=== PATIENT | male | born 1940 | race Caucasian/White ===

== ENCOUNTER 2016-05-07 11:46 | Emergency (ER) | payer OTHER ==
[~2016-05-07 11:46] MED LIST: PERC7.5T13 PO
[2016-05-07 11:49] VITALS: BP 163/77; PULSE 80; RESP 24; TEMP 97.5; O2SAT 94
[2016-05-07 12:29] VITALS: BP 152/87; PULSE 90; RESP 20; O2SAT 98
[2016-05-07 12:46] LABS: AUTOMATED NEUTROPHIL # 9.9 TH/MM3 (1.8-7.7); BASOPHIL # 0.1 TH/MM3 (0-0.2); BASOPHIL % 0.8 % (0.0-2.0); EOSINOPHIL # 0.1 TH/MM3 (0-0.4); EOSINOPHIL % 0.8 % (0.0-4.0); HEMATOCRIT 49.4 % (39.0-51.0); HEMO FLAGS DIFF FINAL; LYMPH % 11.2 % (9.0-44.0); LYMPHOCYTE # 1.4 TH/MM3 (1.0-4.8); MEAN CELL VOLUME 93.3 FL (80.0-100.0); MEAN CORPUSCULAR HEMOGLOBIN 31.3 PG (27.0-34.0); MEAN CORPUSCULAR HGB CONC 33.5 % (32.0-36.0); MONO % 6.5 % (0.0-8.0); NEUT % 80.7 % (16.0-70.0); PLATELET COUNT 221 TH/MM3 (150-450); RED CELL DISTRIBUTION WIDTH 16.2 % (11.6-17.2); WHITE BLOOD COUNT 12.3 TH/MM3 (4.0-11.0)
--- NOTE | 2016-05-07 12:51 | PD ---
HPI Chief Complaint: Complaint Time Seen by Provider: 12:46 Travel History International Travel<30 days: No Contact w/Intl Traveler<30days: No Traveled to known affect area: No History of Present Illness HPI 76-year-old male that presents to the ED for evaluation of dysuria, urgency and hesitation. Per patient she's had this since last night. Per patient he has gotten up about 30 times, he has to go PE but nothing comes out. Per patient she feels like he has an urgency to go as well as dysuria. Per patient he may be urinated 3 ounces of fluid. He feels like he still has to go and feels a pressure. He denies having anything like this before. He does state that he has a history of enlarged prostate and takes medications for it but he denies any recent injury. No fevers chills or sweats. No rashes. No testicular pain. He has an allergy to hydrocortisone. He does tell me that he has had some cough for the past couple months and his been using medications prescribed by his doctor for the cough. He denies any chest pain or shortness of breath. Pain is 4 out of 10. PFSH Past Medical History Atrial Fibrillation: Yes Genitourinary: Yes (ENLARGED PROSTATE) Hypertension: Yes Tetanus Vaccination: Unknown Influenza Vaccination: Yes ?: Not Social History Alcohol Use: No Tobacco Use: No Substance Use: No Allergies-Medications (Allergen,Severity, Reaction): Coded Allergies: Hydrocortisone (Unverified Allergy, Severe, 03/19/14) Reported Meds & Prescriptions Reported Meds & Active Scripts Active Cipro (Ciprofloxacin HCl) 500 Mg Tab 500 Mg PO BID 10 Days Percocet 7.5-325 mg (Oxycodone-Acetaminophen 7.5-325 mg) Oxycodone 7.5/325 Acetaminophen Tab 1 Tab PO Q6 FOR PAIN Review of Systems Except as stated in HPI: all other systems reviewed are Neg Physical Exam Narrative GENERAL: SKIN: Warm and dry. HEAD: Atraumatic. Normocephalic. EYES: Pupils equal and round. No scleral icterus. No injection or drainage. ENT: No nasal bleeding or discharge. Mucous membranes pink and moist. NECK: Trachea midline. No JVD. CARDIOVASCULAR: Regular rate and rhythm. RESPIRATORY: No accessory muscle use. Clear to auscultation. Breath sounds equal bilaterally. GASTROINTESTINAL: Abdomen soft, non-tender, nondistended. Hepatic and splenic margins not palpable. No CVA tenderness. MUSCULOSKELETAL: Extremities without clubbing, cyanosis, or edema. No obvious deformities. Full range of motion of the upper and lower extremity bilaterally. 2+ pulses bilaterally. NEUROLOGICAL: Awake and alert. No obvious cranial nerve deficits. Motor grossly within normal limits. Five out of 5 muscle strength in the arms and legs. Normal speech. PSYCHIATRIC: Appropriate mood and affect; insight and judgment normal. Data Data Last Documented VS Vital Signs Date Time Temp Pulse Resp B/P Pulse Ox O2 Delivery O2 Flow Rate FiO2 05/07/16 12:29 90 20 152/87 98 Room Air 05/07/16 11:49 97.5 Orders Complete Blood Count With Diff (05/07/16 12:07) Basic Metabolic Panel (Bmp) (05/07/16 12:07) Urinalysis - C+S If Indicated (05/07/16 12:07) Iv Access Insert/Monitor (05/07/16 12:07) Urinary Catheter Insert/Apply (05/07/16 12:07) Urine Culture (05/07/16 12:20) Labs Laboratory Tests Test 05/07/16 12:20 White Blood Count 12.3 TH/MM3 Red Blood Count 5.30 MIL/MM3 Hemoglobin 16.6 GM/DL Hematocrit 49.4 % Mean Corpuscular Volume 93.3 FL Mean Corpuscular Hemoglobin 31.3 PG Mean Corpuscular Hemoglobin 33.5 % Concent Red Cell Distribution Width 16.2 % Platelet Count 221 TH/MM3 Mean Platelet Volume 8.8 FL Neutrophils (%) (Auto) 80.7 % Lymphocytes (%) (Auto) 11.2 % Monocytes (%) (Auto) 6.5 % Eosinophils (%) (Auto) 0.8 % Basophils (%) (Auto) 0.8 % Neutrophils # (Auto) 9.9 TH/MM3 Lymphocytes # (Auto) 1.4 TH/MM3 Monocytes # (Auto) 0.8 TH/MM3 Eosinophils # (Auto) 0.1 TH/MM3 Basophils # (Auto) 0.1 TH/MM3 CBC Comment DIFF FINAL Differential Comment Urine Color YELLOW Urine Turbidity CLEAR Urine pH 5.0 Urine Specific [place] 1.012 Urine Protein 30 mg/dL Urine Glucose (UA) NEG mg/dL Urine Ketones NEG mg/dL Urine Occult Blood NEG Urine Nitrite NEG Urine Bilirubin NEG Urine Urobilinogen LESS THAN 2.0 MG/DL Urine Leukocyte Esterase NEG Urine RBC LESS THAN 1 /hpf Urine WBC LESS THAN 1 /hpf Urine Bacteria RARE /hpf Urine Mucus FEW /lpf Microscopic Urinalysis Comment CATH-CULTURE IND Sodium Level 139 MEQ/L Potassium Level 4.4 MEQ/L Chloride Level 108 MEQ/L Carbon Dioxide Level 24.6 MEQ/L Anion Gap 6 MEQ/L Blood Urea Nitrogen 14 MG/DL Creatinine 1.16 MG/DL Estimat Glomerular Filtration 61 ML/MIN Rate Random Glucose 120 MG/DL Calcium Level 9.3 MG/DL [facility] Medical Decision Making Medical Screen Exam Complete: Yes Emergency Medical Condition: Yes Medical Record Reviewed: Yes Interpretation(s) CBC & BMP Diagram 05/07/16 12:20 UA showed some bacteria. Differential Diagnosis Urinary obstruction versus urinary retention versus kidney failure versus UTI versus dysuria versus enlarged prostate Narrative Course 76-year-old male that presents to the ED for evaluation of urinary obstruction. Patient was properly examined and was found to have signs and symptoms consistent appears to be urinary obstruction. Likely from enlarged prostate. Possible side effect from [id number] cold remedies. Patient had 1 L of fluid, from his Lepe. Patient had good relief with the Lepe alone. Urine and labs were ordered. This showed some bacteria but no other sign of acute disease. Patient likely has urinary retention secondary to enlarged prostate as well as recent use of cough syrup which likely exacerbated the urinary retention. Patient had 100% improvement of symptoms with just the following alone. Patient understands that he needs to follow urologist next week. Patient was given information for urologist on-call. Patient will be given prescription for Cipro to cover for bacterial infection. My attending Dr. Earl personally evaluated the patient with me and agrees with plan. He was told to continue taking his BPH medications as needed. See ED worsening symptoms. Diagnosis Primary Impression: Urinary obstruction Referrals: Skinny Wiley MD Patient Instructions: General Instructions Additional Instructions: Take medication as prescribed. Follow-up with urologist. See ED worsening symptoms. Stop taking the cough syrup. Med/Other Pt SpecificInfo: Prescription(s) given Scripts Ciprofloxacin (Cipro)500 Mg [id number] Mg PO BID 10 Days Prov:Trace Earl MD 05/07/16 Disposition: 01 DISCHARGE HOME Condition: Stable Van Jama 13, 2017 12:50
[2016-05-07 12:57] LABS: BACTERIA, URINE RARE /hpf; BLOOD, URINE NEG (NEG); GLUCOSE,URINE NEG (NEG); KETONE, URINE NEG (NEG); MUCUS URINE FEW /lpf (OCC); NITRITE,URINE NEG (NEG); URINE COLOR YELLOW (YELLW/STRAW)
[2016-05-07 12:58] LABS: COMMENT (UR) CATH-CULTURE IND; CULTURE IF INDICATED CATH CULTURE IND
[2016-05-07 13:06] LABS: BICARBONATE 24.6 MEQ/L (21.0-32.0); POTASSIUM 4.4 MEQ/L (3.5-5.1)
[2016-05-07] MEDS ORDERED: CIPR-9 PO (13:23)
[2016-05-07 14:11] VITALS: BP 135/82; PULSE 82; RESP 20; O2SAT 98
[2016-05-08] MEDS ORDERED: SIMV40TA PO (17:00)
[2016-05-08] MEDS ORDERED: ATEN25TA PO (17:00)
[2016-05-08] MEDS ORDERED: DIGO0.25 PO (17:00)
[2016-05-08] MEDS ORDERED: MECL-62 PO (17:00)
[2016-05-08] MEDS ORDERED: ALPR0.5T3 PO (17:00)
[2016-05-08] MEDS ORDERED: TERA5CAP3 PO (17:00)
[2016-05-08] MEDS ORDERED: ALLO300T2 PO (17:00)
[2016-05-08] MEDS ORDERED: MEDI220T PO (17:00)
[2016-05-08] MEDS ORDERED: OMEP20TA PO (17:00)
[2016-05-08] MEDS ORDERED: MIRA33504 PO (17:57)
== END 2016-05-07 14:11 | disposition home or self-care (01) ==
LOC: NEPC 11:46
DX: N40.1 Benign prostatic hyperplasia with lower urinary tract symptoms (principal); N13.8 Other obstructive and reflux uropathy; R39.11 Hesitancy of micturition; R33.8 Other retention of urine; R39.15 Urgency of urination
CPT/HCPCS: 51703; 80048; 81001; 85025; 87086

== ENCOUNTER 2016-05-08 15:11 | Emergency (ER) | payer OTHER ==
[~2016-05-08 15:11] MED LIST changes: +CIPR-9 PO
[2016-05-08 15:12] VITALS: BP 163/85; PULSE 102; RESP 22; TEMP 98.2; O2SAT 95
[2016-05-08] MEDS ORDERED: SODIUM CHLORIDE 0.9% FLUSH 5 ML FLUSH IVF PRN (16:45)
[2016-05-08] MEDS ORDERED: SODIUM CHLORID 0.9% 500 ML INJ 500 ML IV ONE (16:45)
[2016-05-08 16:51] VITALS: RESP 20; O2SAT 95
[2016-05-08] MEDS ORDERED: DIGO0.25 PO (17:00)
[2016-05-08] MEDS ORDERED: ALLO300T2 PO (17:00)
[2016-05-08] MEDS ORDERED: ALPR0.5T3 PO (17:00)
[2016-05-08] MEDS ORDERED: TERA5CAP3 PO (17:00)
[2016-05-08] MEDS ORDERED: SIMV40TA PO (17:00)
[2016-05-08] MEDS ORDERED: ATEN25TA PO (17:00)
[2016-05-08] MEDS ORDERED: MEDI220T PO (17:00)
[2016-05-08] MEDS ORDERED: MECL-62 PO (17:00)
[2016-05-08] MEDS ORDERED: OMEP20TA PO (17:00)
--- NOTE | 2016-05-08 17:00 | PD ---
HPI Chief Complaint: Complaint Time Seen by Provider: 16:31 Travel History International Travel<30 days: No Contact w/Intl Traveler<30days: No Traveled to known affect area: No History of Present Illness HPI 76-year-old male came to the emergency room with history of abdominal discomfort. Patient was in the emergency room yesterday for urinary retention. A Lepe catheter was put in which drained the urine and patient was sent home with leg bag. His blood test results were within normal limit and UA was suggestive of possible UTI. He was discharged home on ciprofloxacin but the patient was afraid to take the antibiotic since he looked up the side effect and he was quite concerned. Today the patient says that he has been dribbling around the catheter and has to wear depends. Also he has developed some bloated sensation in his abdomen and some pain going to his back. No history of fever or chills. No history of nausea vomiting. Patient has not had bowel movement for 4 days now. He says that is not unusual for him. Patient says that he was sent home the name of a urologist to follow up with. However when he tried calling the office he was unable to get anybody on the other end. [facility] Past Medical History Narrative Medical List of his past medical history as reviewed from the nursing note. Atrial Fibrillation: Yes Cardiovascular Problems: Yes (A-FIB) Gout: Yes Genitourinary: Yes (ENLARGED PROSTATE) Hypertension: Yes Tetanus Vaccination: > 5 Years Influenza Vaccination: Yes Past Surgical History Surgical History: No Previous Surgery Social History Alcohol Use: No Tobacco Use: No Substance Use: No Allergies-Medications (Allergen,Severity, Reaction): Coded Allergies: Hydrocortisone (Verified Allergy, Severe, 05/08/16) Comments List of his allergies reviewed from the nursing note. Reported Meds & Prescriptions Reported Meds & Active Scripts Active Miralax Powder (Polyethylene Glycol 3350 Powder) 17 Gm Powd 17 Gm PO DAILY Mix and dissolve one measuring cap-ful (17 grams) in water or juice. Reported Omeprazole 20 Mg Tab 20 Mg PO DAILY Terazosin (Terazosin HCl) 5 Mg Cap 5 Mg PO HS Allopurinol 300 Mg Tab 300 Mg PO DAILY Simvastatin 40 Mg Tab 40 Mg PO HS Atenolol 25 Mg Tab 25 Mg PO DAILY Digoxin 0.25 Mg Tab 0.25 Mg PO DAILY Meclizine (Meclizine HCl) 25 Mg Tab 25 Mg PO TID PRN Naproxen Sodium 220 Mg Tab 220 Mg PO BID PRN Alprazolam 0.5 Mg Tab 0.5 Mg PO Q8H PRN Narrative Medication List of his home medications reviewed from the nursing note. Review of Systems Except as stated in HPI: all other systems reviewed are Neg Physical Exam Narrative GENERAL: Awake, alert, anxious, elderly, moderate distress SKIN: Warm and dry. HEAD: Atraumatic. Normocephalic. EYES: Pupils equal and round. No scleral icterus. No injection or drainage. ENT: No nasal bleeding or discharge. Mucous membranes pink and moist. NECK: Trachea midline. No JVD. CARDIOVASCULAR: Regular rate and rhythm. No murmur appreciated. RESPIRATORY: No accessory muscle use. Clear to auscultation. Breath sounds equal bilaterally. GASTROINTESTINAL: Abdomen soft, non-tender, nondistended. Hepatic and splenic margins not palpable. Leg bag attached to his right thigh. Clear urine in the bag. MUSCULOSKELETAL: No obvious deformities. No clubbing. No cyanosis. No edema. NEUROLOGICAL: Awake and alert. No obvious cranial nerve deficits. Motor grossly within normal limits. Normal speech. PSYCHIATRIC: Appropriate mood and affect; insight and judgment normal. Data Data Last Documented VS Vital Signs Date Time Temp Pulse Resp B/P Pulse Ox O2 Delivery O2 Flow Rate FiO2 05/08/16 16:51 85 20 05/08/16 16:51 95 Room Air 05/08/16 15:12 98.2 163/85 Orders Complete Blood Count With Diff (05/08/16 16:40) Comprehensive Metabolic Panel (05/08/16 16:40) Urinalysis - C+S If Indicated (05/08/16 16:40) Ct Abd/Pel W/O Iv Contrast (05/08/16 16:40) Iv Access Insert/Monitor (05/08/16 16:40) Ecg Monitoring (05/08/16 16:40) Oximetry (05/08/16 16:40) Sodium Chloride 0.9% Flush (Ns Flush) (05/08/16 16:45) Sodium Chlorid 0.9% 500 Ml Inj (Ns 500 M (05/08/16 16:45) Labs Laboratory Tests Test 05/08/16 05/08/16 16:40 16:45 Urine Color LIGHT-YELLOW Urine Turbidity CLEAR Urine pH 5.0 Urine Specific [place] 1.004 Urine Protein TRACE mg/dL Urine Glucose (UA) NEG mg/dL Urine Ketones NEG mg/dL Urine Occult Blood MOD Urine Nitrite NEG Urine Bilirubin NEG Urine Urobilinogen LESS THAN 2.0 MG/DL Urine Leukocyte Esterase MOD Urine RBC 2 /hpf Urine WBC 4 /hpf Urine Bacteria RARE /hpf Microscopic Urinalysis Comment CULT NOT INDICATED White Blood Count 15.9 TH/MM3 Red Blood Count 4.94 MIL/MM3 Hemoglobin 15.7 GM/DL Hematocrit 46.1 % Mean Corpuscular Volume 93.4 FL Mean Corpuscular Hemoglobin 31.7 PG Mean Corpuscular Hemoglobin 34.0 % Concent Red Cell Distribution Width 16.0 % Platelet Count 202 TH/MM3 Mean Platelet Volume 8.9 FL Neutrophils (%) (Auto) 78.1 % Lymphocytes (%) (Auto) 10.9 % Monocytes (%) (Auto) 9.4 % Eosinophils (%) (Auto) 0.2 % Basophils (%) (Auto) 1.4 % Neutrophils # (Auto) 12.4 TH/MM3 Lymphocytes # (Auto) 1.7 TH/MM3 Monocytes # (Auto) 1.5 TH/MM3 Eosinophils # (Auto) 0.0 TH/MM3 Basophils # (Auto) 0.2 TH/MM3 CBC Comment DIFF FINAL Differential Comment Sodium Level 138 MEQ/L Potassium Level 4.1 MEQ/L Chloride Level 103 MEQ/L Carbon Dioxide Level 24.5 MEQ/L Anion Gap 11 MEQ/L Blood Urea Nitrogen 16 MG/DL Creatinine 1.14 MG/DL Estimat Glomerular Filtration 62 ML/MIN Rate Random Glucose 114 MG/DL Calcium Level 9.1 MG/DL Total Bilirubin 1.2 MG/DL Aspartate Amino Transf 20 U/L (AST/SGOT) Alanine Aminotransferase 35 U/L (ALT/SGPT) Alkaline Phosphatase 59 U/L Total Protein 8.0 GM/DL Albumin 4.0 GM/DL [facility] Medical Decision Making Medical Screen Exam Complete: Yes Emergency Medical Condition: Yes Medical Record Reviewed: Yes Differential Diagnosis Obstipation, acute diverticulitis, abdominal pain NOS Narrative Course 5 PM I have ordered blood tests and a CAT scan. Awaiting for the test results and the CAT scan to be done and resulted. Patient says he does not need anything for pain currently since the pain is bearable. 5:54 PM blood test results of back and patient has some leukocytosis. This is moderately increased from yesterday. However his chemistry and urinalysis looks better. CAT scan of the abdomen shows moderate stool but otherwise negative. I will discharge this gentleman home. His Lepe catheter was asked to be changed by the nurse. 6:15 PM patient did not want the Lepe catheter to be changed and would rather follow up with the urologist. He said he would continue wearing the depends in the meanwhile if there is leakage. I'm fine with that plan. Patient will be discharged. Procedures EKG Prior to Arrival: No Diagnosis Primary Impression: Urinary obstruction Additional Impressions: Abdominal discomfort Constipation Qualified Code: K59.00 - Constipation, unspecified constipation type Referrals: Skinny Wiley MD 2 days Additional Instructions: Please follow-up with the urologist whose name and number has been provided to you on Tuesday. Take the medication as per the prescription direction. He did not need to take the antibiotic that was prescribed to you yesterday. Empty the leg bag as per the nurses demonstration. Return to the ER if the condition worsens or any other new concerns. Med/Other Pt SpecificInfo: Prescription(s) given Scripts Polyethylene Glycol 3350 Powder (Miralax Powder)17 Gm Powd17 Gm PO DAILY #1 BOTTLE Ref 0 Mix and dissolve one measuring cap-ful (17 grams) in water or juice. Prov:Vinicio Magana MD 05/08/16 Disposition: 01 DISCHARGE HOME Condition: Stable Vinicio Magana MD May 08, 2016 17:00
[2016-05-08 17:19] LABS: AUTOMATED NEUTROPHIL # 12.4 TH/MM3 (1.8-7.7); BASOPHIL # 0.2 TH/MM3 (0-0.2); BASOPHIL % 1.4 % (0.0-2.0); EOSINOPHIL % 0.2 % (0.0-4.0); HEMATOCRIT 46.1 % (39.0-51.0); HEMO FLAGS DIFF FINAL; LYMPH % 10.9 % (9.0-44.0); LYMPHOCYTE # 1.7 TH/MM3 (1.0-4.8); MEAN CELL VOLUME 93.4 FL (80.0-100.0); MEAN CORPUSCULAR HEMOGLOBIN 31.7 PG (27.0-34.0); MONO % 9.4 % (0.0-8.0); NEUT % 78.1 % (16.0-70.0); PLATELET COUNT 202 TH/MM3 (150-450); RED BLOOD COUNT 4.94 MIL/MM3 (4.50-5.90); WHITE BLOOD COUNT 15.9 TH/MM3 (4.0-11.0)
[2016-05-08 17:21] LABS: BACTERIA, URINE RARE /hpf; BLOOD, URINE MOD (NEG); COMMENT (UR) CULT NOT INDICATED; CULTURE IF INDICATED CULT NOT INDICATED; GLUCOSE,URINE NEG (NEG); KETONE, URINE NEG (NEG); NITRITE,URINE NEG (NEG); URINE COLOR LIGHT-YELLOW (YELLW/STRAW)
[2016-05-08 17:41] LABS: ANION GAP 11 MEQ/L (5-15); AST (GOT) 20 U/L (15-37); BICARBONATE 24.5 MEQ/L (21.0-32.0); BLOOD UREA NITROGEN 16 MG/DL (7-18); CHLORIDE 103 MEQ/L (98-107); GLOMERULAR FILTRATION RATE 62 ML/MIN (>89); POTASSIUM 4.1 MEQ/L (3.5-5.1); SODIUM (NA) 138 MEQ/L (136-145)
[2016-05-08 17:44] LABS: ALKALINE PHOSPHATASE 59 U/L (45-117); ALT (GPT) 35 U/L (12-78); TOTAL BILIRUBIN ADULT 1.2 MG/DL (0.2-1.0)
--- NOTE | 2016-05-08 17:46 | RADRPT ---
EXAM DATE/TIME: 05/08/2016 17:01 [place] COMPARISON: No previous studies available for comparison. INDICATIONS : Abdomen pain, wood leaking. ORAL CONTRAST: No oral contrast ingested. RADIATION DOSE: 6.74 CTDIvol (mGy) MEDICAL HISTORY : Cardiovascular disease. Hypertension. SURGICAL HISTORY : None. ENCOUNTER: Initial ACUITY: 2 days PAIN SCALE: 5/10 LOCATION: Abdomen TECHNIQUE: Volumetric scanning of the abdomen and pelvis was performed. Using automated exposure control and ad justment of the mA and/or kV according to patient size, radiation dose was kept as low as reasonably achievable to obtain optimal diagnostic quality images. FINDINGS: The lung bases are clear. Liver is free of focal defects. A gallstone is present in the neck of the gallbladder. Spleen, pancreas, adrenal glands and kidneys appear unremarkable. In the pelvis, there are diverticula in the sigmoid colon. Bladder is partially decompressed by a Fo osvaldo. There is no ascites or adenopathy. CONCLUSION: 1. Gallstones. 2. I do not see an etiology for the patient's abdominal pain. 3. A moderate amount of stool is seen in the ascending colon. David Park MD FACR on May 08, 2016 at 17:27 Board Certified Radiologist. This report was verified electronically.
[2016-05-08] MEDS ORDERED: MIRA33504 PO (17:57)
== END 2016-05-08 19:27 | disposition home or self-care (01) ==
LOC: NEPC 15:11
DX: N13.9 Obstructive and reflux uropathy, unspecified (principal); I10 Essential (primary) hypertension; K59.00 Constipation, unspecified; I48.91 Unspecified atrial fibrillation
CPT/HCPCS: 74176; 80053; 81001; 85025; 96360; 99284; J7040

== ENCOUNTER 2016-05-15 17:02 | Emergency (ER) | payer OTHER ==
[~2016-05-15] VITALS: Ht 175.3 cm; Wt 70.0 kg
[~2016-05-15 17:02] MED LIST changes: +ALLO300T2 PO; +ALPR0.5T3 PO; +ATEN25TA PO; -CIPR-9 PO; +DIGO0.25 PO; +MECL-62 PO; +MEDI220T PO; +MIRA33504 PO; +OMEP20TA PO; -PERC7.5T13 PO; +SIMV40TA PO; +TERA5CAP3 PO
[2016-05-15 17:05] VITALS: BP 172/75; PULSE 78; RESP 20; TEMP 97.7; O2SAT 90
--- NOTE | 2016-05-15 17:49 | PD ---
HPI Chief Complaint: Complaint Time Seen by Provider: 17:44 Travel History International Travel<30 days: No Contact w/Intl Traveler<30days: No Traveled to known affect area: No History of Present Illness HPI Patient comes in for evaluation of hematuria the patient noted in his Lepe leg bag approximately 3 hours ago. Patient states that he had a Lepe placed on the of this month and had a new one placed at the urologist's office yesterday. Patient states that he's been having no problems with it, however got scared when he saw what appeared to be blood in the bag around 1430 today. Patient states only blood thinner he takes is aspirin. Denies any pain with this. Denies any fevers, abdominal pain, chest pain, shortness breath, or back pain. Patient reports he is scheduled for cystoscopy on Tuesday but was concerned and decided to come to the emergency department further treatment and evaluation. Patient reports he is taking Cipro as prescribed, last dose this morning. PFSH Past Medical History Atrial Fibrillation: Yes Cardiovascular Problems: Yes (A-FIB) Gout: Yes Genitourinary: Yes (ENLARGED PROSTATE) Hypertension: Yes Social History Alcohol Use: No Tobacco Use: No Substance Use: No Allergies-Medications (Allergen,Severity, Reaction): Coded Allergies: Hydrocortisone (Verified Allergy, Severe, 05/15/16) Reported Meds & Prescriptions Reported Meds & Active Scripts Active Miralax Powder (Polyethylene Glycol 3350 Powder) 17 Gm Powd 17 Gm PO DAILY Mix and dissolve one measuring cap-ful (17 grams) in water or juice. Reported Omeprazole 20 Mg Tab 20 Mg PO DAILY Terazosin (Terazosin HCl) 5 Mg Cap 5 Mg PO HS Allopurinol 300 Mg Tab 300 Mg PO DAILY Simvastatin 40 Mg Tab 40 Mg PO HS Atenolol 25 Mg Tab 25 Mg PO DAILY Digoxin 0.25 Mg Tab 0.25 Mg PO DAILY Meclizine (Meclizine HCl) 25 Mg Tab 25 Mg PO TID PRN Naproxen Sodium 220 Mg Tab 220 Mg PO BID PRN Alprazolam 0.5 Mg Tab 0.5 Mg PO Q8H PRN Review of Systems Except as stated in HPI: all other systems reviewed are Neg Physical Exam Narrative GENERAL: Well-developed, well nourished, in no acute distress, and non-ill appearing. SKIN: Warm and dry. HEAD: Atraumatic. Normocephalic. EYES: Pupils equal and round. EOMI. No scleral icterus. No injection or drainage. ENT: No nasal bleeding or discharge. Mucous membranes pink and moist. NECK: Trachea midline. Supple. No nuclear rigidity. RESPIRATORY: No accessory muscle use. No respiratory distress. GASTROINTESTINAL: Abdomen soft, non-tender, nondistended. Hepatic and splenic margins not palpable. Normal bowel sounds 4. No pulsatile mass. GENITOURINARY: Circumcised. Testes descended bilaterally without evidence of rotation. No lesions or erythema. Lepe catheter noted in the urethra with no discharge around it. Tea color urine noted Lepe catheter bag. MUSCULOSKELETAL: No obvious deformities. No clubbing. No cyanosis. No edema. Full range of motion. NEUROLOGICAL: Awake and alert. No obvious cranial nerve deficits. Motor grossly within normal limits. Normal speech. PSYCHIATRIC: Appropriate mood and affect; insight and judgment normal. Data Data Last Documented VS Vital Signs Date Time Temp Pulse Resp B/P Pulse Ox O2 Delivery O2 Flow Rate FiO2 05/15/16 17:05 97.7 78 20 172/75 90 Room Air Orders Basic Metabolic Panel (Bmp) (05/15/16 17:50) Complete Blood Count With Diff (05/15/16 17:50) Urinalysis - C+S If Indicated (05/15/16 17:50) Iv Access Insert/Monitor (05/15/16 17:50) Sodium Chloride 0.9% Flush (Ns Flush) (05/15/16 18:00) Act Partial Throm Time (Ptt) (05/15/16 17:50) Prothrombin Time / Inr (Pt) (05/15/16 17:50) Urine Culture (05/15/16 18:10) Labs Laboratory Tests Test 05/15/16 18:10 White Blood Count 11.9 TH/MM3 Red Blood Count 4.67 MIL/MM3 Hemoglobin 14.9 GM/DL Hematocrit 44.0 % Mean Corpuscular Volume 94.1 FL Mean Corpuscular Hemoglobin 31.9 PG Mean Corpuscular Hemoglobin 33.9 % Concent Red Cell Distribution Width 16.1 % Platelet Count 246 TH/MM3 Mean Platelet Volume 8.3 FL Neutrophils (%) (Auto) 71.8 % Lymphocytes (%) (Auto) 16.3 % Monocytes (%) (Auto) 9.2 % Eosinophils (%) (Auto) 1.7 % Basophils (%) (Auto) 1.0 % Neutrophils # (Auto) 8.5 TH/MM3 Lymphocytes # (Auto) 1.9 TH/MM3 Monocytes # (Auto) 1.1 TH/MM3 Eosinophils # (Auto) 0.2 TH/MM3 Basophils # (Auto) 0.1 TH/MM3 CBC Comment DIFF FINAL Differential Comment Prothrombin Time 12.6 SEC Prothromb Time International 1.1 RATIO Ratio Activated Partial 28.4 SEC Thromboplast Time Urine Color RED Urine Turbidity HAZY Urine pH 5.5 Urine Specific [place] 1.009 Urine Protein 100 mg/dL Urine Glucose (UA) NEG mg/dL Urine Ketones NEG mg/dL Urine Occult Blood LARGE Urine Nitrite NEG Urine Bilirubin NEG Urine Urobilinogen LESS THAN 2.0 MG/DL Urine Leukocyte Esterase SMALL Urine RBC /hpf Urine WBC 16 /hpf Urine Squamous Epithelial <1 /hpf Cells Urine Bacteria FEW /hpf Urine Mucus FEW /lpf Microscopic Urinalysis Comment CULTURE INDICATED Sodium Level 139 MEQ/L Potassium Level 4.4 MEQ/L Chloride Level 105 MEQ/L Carbon Dioxide Level 25.8 MEQ/L Anion Gap 8 MEQ/L Blood Urea Nitrogen 17 MG/DL Creatinine 1.09 MG/DL Estimat Glomerular Filtration 66 ML/MIN Rate Random Glucose 100 MG/DL Calcium Level 8.8 MG/DL MDM Medical Decision Making Medical Screen Exam Complete: Yes Emergency Medical Condition: Yes Differential Diagnosis Acute kidney injury, nephrotoxicity, UTI, hypercoagulable, other Narrative Course Patient in no obvious distress upon re-evaluation. All pertinent laboratory result(s) discussed with patient. Discussed patient with Dr. Arteaga, who saw and evaluated the patient and is in agreement with plan of care and disposition. Any questions/concerns in reference to patient diagnosis/condition discussed and clarified prior to patient's discharge. Reinforced sheer importance of close follow up with patient's primary physician or primary care clinic. Instructed patient to return to ED immediately, if symptoms return/worsen. Pt showed understanding of above instructions. Further instructions and recommendations were detailed in discharge paperwork. Pt ambulated without difficulty out of ED at discharge. Diagnosis Primary Impression: Hematuria, gross Patient Instructions: Acute Hematuria (DC), General Instructions, Hematuria (ED ) Additional Instructions: Follow-up with your urologist on Tuesday as scheduled. Return to the emergency department if symptoms get worse. Disposition: DISCHARGE HOME Condition: Stable Arnav Lee May 15, 2016 17:49
[2016-05-15] MEDS ORDERED: SODIUM CHLORIDE 0.9% FLUSH 5 ML FLUSH IVF PRN (18:00)
[2016-05-15 18:25] LABS: AUTOMATED NEUTROPHIL # 8.5 TH/MM3 (1.8-7.7); BASOPHIL # 0.1 TH/MM3 (0-0.2); EOSINOPHIL # 0.2 TH/MM3 (0-0.4); EOSINOPHIL % 1.7 % (0.0-4.0); HEMO FLAGS DIFF FINAL; LYMPH % 16.3 % (9.0-44.0); LYMPHOCYTE # 1.9 TH/MM3 (1.0-4.8); MEAN CELL VOLUME 94.1 FL (80.0-100.0); MEAN CORPUSCULAR HEMOGLOBIN 31.9 PG (27.0-34.0); MEAN CORPUSCULAR HGB CONC 33.9 % (32.0-36.0); MONO % 9.2 % (0.0-8.0); NEUT % 71.8 % (16.0-70.0); PLATELET COUNT 246 TH/MM3 (150-450); RED BLOOD COUNT 4.67 MIL/MM3 (4.50-5.90); RED CELL DISTRIBUTION WIDTH 16.1 % (11.6-17.2); WHITE BLOOD COUNT 11.9 TH/MM3 (4.0-11.0)
[2016-05-15 18:50] LABS: BACTERIA, URINE FEW /hpf; BLOOD, URINE LARGE (NEG); COMMENT (UR) CULTURE INDICATED; CULTURE IF INDICATED CULTURE INDICATED; GLUCOSE,URINE NEG (NEG); KETONE, URINE NEG (NEG); MUCUS URINE FEW /lpf (OCC); NITRITE,URINE NEG (NEG); PH, URINE 5.5 (5.0-8.5); SQUAMOUS EPITHELIAL CELL URINE <1 /hpf (0-5); URINE COLOR RED (YELLW/STRAW)
--- NOTE | 2016-05-15 18:50 | PD ---
Data Data Last Documented VS Vital Signs Date Time Temp Pulse Resp B/P Pulse Ox O2 Delivery O2 Flow Rate FiO2 05/15/16 17:05 97.7 78 20 172/75 90 Room Air Orders Basic Metabolic Panel (Bmp) (05/15/16 17:50) Complete Blood Count With Diff (05/15/16 17:50) Urinalysis - C+S If Indicated (05/15/16 17:50) Iv Access Insert/Monitor (05/15/16 17:50) Sodium Chloride 0.9% Flush (Ns Flush) (05/15/16 18:00) Act Partial Throm Time (Ptt) (05/15/16 17:50) Prothrombin Time / Inr (Pt) (05/15/16 17:50) Labs Laboratory Tests Test 05/15/16 18:10 White Blood Count 11.9 TH/MM3 Red Blood Count 4.67 MIL/MM3 Hemoglobin 14.9 GM/DL Hematocrit 44.0 % Mean Corpuscular Volume 94.1 FL Mean Corpuscular Hemoglobin 31.9 PG Mean Corpuscular Hemoglobin 33.9 % Concent Red Cell Distribution Width 16.1 % Platelet Count 246 TH/MM3 Mean Platelet Volume 8.3 FL Neutrophils (%) (Auto) 71.8 % Lymphocytes (%) (Auto) 16.3 % Monocytes (%) (Auto) 9.2 % Eosinophils (%) (Auto) 1.7 % Basophils (%) (Auto) 1.0 % Neutrophils # (Auto) 8.5 TH/MM3 Lymphocytes # (Auto) 1.9 TH/MM3 Monocytes # (Auto) 1.1 TH/MM3 Eosinophils # (Auto) 0.2 TH/MM3 Basophils # (Auto) 0.1 TH/MM3 CBC Comment DIFF FINAL Differential Comment MDM Supervised Visit with LONNIE: Yes Narrative Course The history, exam, and medical decision-making in the associated mid-level provider note were completed with my assistance. I reviewed and agree with the findings presented. I attest that I had a [id number] encounter with the patient on the same day, and personally performed and documented my assessment and findings in the medical record. *My assessment and Findings: 76-year-old male with urinary retention, Lepe catheter in place, following up with urology, presents with hematuria. No evidence of obstruction. We'll check for infection. Is on antibiotics now. We'll check renal function. Outpatient follow-up. Jay Arteaga MD May 15, 2016 18:50
[2016-05-15 18:59] LABS: BICARBONATE 25.8 MEQ/L (21.0-32.0); POTASSIUM 4.4 MEQ/L (3.5-5.1)
[2016-05-15 19:55] LABS: APTT (PATIENT) 28.4 SEC (24.3-30.1); INTERNATIONAL NORMALIZED RATIO 1.1 RATIO; PROTHROMBIN TIME - PATIENT 12.6 SEC (9.8-11.6)
== END 2016-05-15 21:00 | disposition home or self-care (01) ==
LOC: NEPE 17:02
DX: R31.0 Gross hematuria (principal); R33.9 Retention of urine, unspecified; N40.1 Benign prostatic hyperplasia with lower urinary tract symptoms; I48.91 Unspecified atrial fibrillation; M10.9 Gout, unspecified; I10 Essential (primary) hypertension
CPT/HCPCS: 80048; 81001; 85025; 85610; 85730; 87086; 99283